=== PATIENT | female | born 1955 | race Caucasian/White ===

== ENCOUNTER 2019-03-16 14:08 | Observation (INO) | payer OTHER, SELFPAY ==
[2019-03-16] VITALS (13 sets, daily range): BP systolic 117–164; BP diastolic 44–76; PULSE 87–105; RESP 15–22; TEMP 36.4–38.8; O2SAT 93–100; BMI 26.6; BMI 26.2
--- NOTE | 2019-03-16 14:24 | PC.NURSE ---
reports, left flank onset friday, now with fever and nausea, denies vomiting. seen at [place], sent here for evaluations. had pain medications [employer]. treated with prednisone for face/chest rash.
--- NOTE | 2019-03-16 14:39 | ED_ITS ---
HPI - Fever <Michaela Sahni PA-C - Last Filed: 03/16/19 18:58> General Chief Complaint: Abdominal Pain Stated Complaint: uncontrollable shivers,kidney pain,fever Time Seen by Provider: 03/16/19 14:15 Source: patient Mode of arrival: ambulatory Limitations: no limitations History of Present Illness HPI Narrative: This 64-year-old female is a her PCP office secondary to concern for pyelonephritis, with fever and rigors. She states that she began to have left flank pain on Friday, which gradually worsened throughout the day, then she had uncontrollable shaking on Friday night. She states that actually felt better yesterday with some moderate flank pain, but pain worsened again last night and she began to have shakes again. She went to her PCP office today and had temperature of 102.5?, urinalysis was done and she had 2+ blood, 1+ protein, 1+ leukocytes, nitrites (brought results with her). She did not have any new urinary symptoms prior. She denies abdominal pain and states this is localized in the flank. She has had some nausea. She has not had vomiting. She denies chest pain, dyspnea, new pain or swelling in the extremities. She has been on prednisone taper for rash of unknown origin, last took 5 mg yesterday. Patient describes getting scalded action, not sure if she has taken cephalosporins. She states she has tolerated Cipro in the past without problems for UTI. No chronic health issues. Discussed with her PCP who mentioned recent treatment for rash but no chronic health conditions. No recent lab work Related Data Home Medications Medication Instructions Recorded Confirmed prednisone 10 mg PO DAILY 03/16/19 03/16/19 tacrolimus 1 applic TOPICAL DIRECTED 03/16/19 03/16/19 Allergies Allergy/AdvReac Type Severity Reaction Status Date / Time Penicillins Allergy Verified 03/16/19 14:17 Review of Systems <Michaela Sahni PA-C - Last Filed: 03/16/19 18:58> Review of Systems ROS Unobtainable: All systems reviewed & are unremarkable except as noted in HPI and below PFSH <Michaela Sahni PA-C - Last Filed: 03/16/19 18:58> Medical History (Updated 03/16/19 @ 17:32 by Lorena Nam MD) Dermatitis (Acute) No chronic problems (Chronic) Surgical History History of laparoscopy (Resolved) Hx of exploratory laparotomy (Resolved) Social History Smoking Status: Never smoker Family History (Updated 03/16/19 @ 17:32 by Lorena Nam MD) Father Bladder cancer Social History household members: spouse Smoking Status: Never smoker alcohol intake: current Exam <Michaela Sahni PA-C - Last Filed: 03/16/19 18:58> Narrative Exam Narrative: GENERAL APPEARANCE: Patient in NAD but rigors noted HEENT: PERRL, EOMI, conjunctiva pink NECK: Supple, no masses LUNGS: Clear to auscultation bilaterally, no cough on exam. HEART: Rate and rhythm regular without murmur, normal S1 and S2, no S3 or S4. ABDOMEN: Soft, NT, ND, +BS x 4 quadrants, exquisite left CVAT, minimal right CVAT DERMATOLOGIC: No exanthem EXTREMITIES: No cyanosis or edema, no calf tenderness Initial Vital Signs Initial Vital Signs: Vital Signs Temperature 98.9 F 03/16/19 14:19 Pulse Rate 105 H 03/16/19 14:19 Respiratory Rate 22 03/16/19 14:19 Blood Pressure 164/76 H 03/16/19 14:19 Pulse Oximetry 99 03/16/19 14:19 <Romel Easley DO - Last Filed: 03/16/19 19:58> Initial Vital Signs Initial Vital Signs: Vital Signs Temperature 98.9 F 03/16/19 14:19 Pulse Rate 105 H 03/16/19 14:19 Respiratory Rate 22 03/16/19 14:19 Blood Pressure 164/76 H 03/16/19 14:19 Pulse Oximetry 99 03/16/19 14:19 Course <Michaela Sahni PA-C - Last Filed: 03/16/19 18:58> Additional Information: The patient did spike another fever, feeling better after pain medications, has not vomited. She is ill appearing though rigors have started to improve. Spoke with Dr. Nam on-call hospitalist who is agreeable with admission Orders Ordered: ED Orders 03/16/19 14:35 Complete Blood Count AUTO DIFF Stat Comprehensive Metabolic Panel Stat Lactate (Lactic Acid) Stat Partial Thromboplastin Time Stat Prothrombin Time INR Stat Urinalysis and Microscopic Stat Urine Culture Stat 03/16/19 15:14 Blood Culture Stat 03/16/19 16:45 Education, smoking cessation ONGOING 03/17/19 05:00 Basic Metabolic Panel Routine Complete Blood Count AUTO DIFF Routine Acetaminophen (Tylenol) 650 mg PO Q6HR PRN PRN Reason: As Needed for Fever/Mild Pain Hydrocodone Bitart/Acetaminophen ([place] 5/325) 1 tab PO Q4HR PRN PRN Reason: Pain, Moderate (4-6) Last Admin: 03/16/19 17:45 Dose: 1 tab Bisacodyl (Dulcolax) 10 mg PO DAILY PRN PRN Reason: Constipation Docusate Sodium (Colace) 100 mg PO BID SIVAKUMAR Enoxaparin Sodium (Lovenox) 40 mg SUBCUT DAILY SIVAKUMAR Levofloxacin (Levaquin) 500 mg in 100 mls @ 100 mls/hr IV Q24H SIVAKUMAR Potassium Chloride/Sodium Chloride (Ns With Kcl 20 Meq) 1,000 mls @ 125 mls/hr IV CONT SIVAKUMAR Morphine Sulfate (Morphine) 2 mg IV Q4HR PRN PRN Reason: Pain, Moderate (4-6) Ondansetron HCl (Zofran) 4 mg IV Q8HR PRN PRN Reason: Nausea And Vomiting Discontinued Medications Acetaminophen (Tylenol) 975 mg PO NOW ONE Stop: 03/16/19 15:22 Last Admin: 03/16/19 15:22 Dose: 975 mg Sodium Chloride (Normal Saline 0.9%) 2,313.33 mls @ 771.11 mls/hr 30 ml/kg infuse over 3 hr (2313.33 ml) IV NOW ONE Stop: 03/16/19 17:31 Last Infusion: 03/16/19 16:56 Dose: 771 mls/hr Infusion: 03/16/19 16:44 Dose: 771 mls/hr Infusion: 03/16/19 16:36 Dose: 771 mls/hr Infusion: 03/16/19 15:30 Dose: 400 mls/hr Admin: 03/16/19 14:53 Dose: 771.11 mls/hr Levofloxacin (Levaquin) 500 mg in 100 mls @ 100 mls/hr IV NOW ONE Stop: 03/16/19 16:16 Last Infusion: 03/16/19 15:30 Dose: 0 mls/hr Admin: 03/16/19 15:30 Dose: 100 mls/hr Ketorolac Tromethamine (Toradol) 15 mg IV NOW ONE Stop: 03/16/19 15:18 Last Admin: 03/16/19 15:22 Dose: 15 mg Morphine Sulfate (Morphine) 4 mg IV NOW ONE Stop: 03/16/19 15:11 Last Admin: 03/16/19 15:16 Dose: 4 mg Ondansetron HCl (Zofran) 4 mg IV NOW ONE Stop: 03/16/19 14:40 Last Admin: 03/16/19 14:53 Dose: 4 mg Prednisone (Deltasone) 10 mg PO DAILY SIVAKUMAR Vital Signs - 8 hr 03/16/19 14:19 03/16/19 14:55 03/16/19 15:00 Temperature 98.9 F Pulse Rate 105 H 96 H 94 H Respiratory Rate 22 22 20 Blood Pressure 164/76 H Blood Pressure [Left Arm] 117/56 L 134/45 L Pulse Oximetry 99 100 99 03/16/19 15:18 03/16/19 15:22 03/16/19 15:30 Temperature 101.8 F H 101.8 F H Pulse Rate 99 H Respiratory Rate 20 Blood Pressure Blood Pressure [Left Arm] 143/50 H Pulse Oximetry 99 03/16/19 15:52 03/16/19 16:00 03/16/19 16:20 Temperature 99 F 99.3 F Pulse Rate 98 H Respiratory Rate 15 Blood Pressure Blood Pressure [Left Arm] 120/46 L Pulse Oximetry 93 03/16/19 16:32 03/16/19 16:45 Temperature 100.8 F H Pulse Rate 94 H 95 H Respiratory Rate 17 17 Blood Pressure 134/67 Blood Pressure [Left Arm] 120/44 L Pulse Oximetry 96 96 <Romel Easley DO - Last Filed: 03/16/19 19:58> Orders Ordered: ED Orders 03/16/19 14:35 Complete Blood Count AUTO DIFF Stat Comprehensive Metabolic Panel Stat Lactate (Lactic Acid) Stat Partial Thromboplastin Time Stat Prothrombin Time INR Stat Urinalysis and Microscopic Stat Urine Culture Stat 03/16/19 15:14 Blood Culture Stat 03/16/19 16:45 Education, smoking cessation ONGOING 03/17/19 05:00 Basic Metabolic Panel Routine Complete Blood Count AUTO DIFF Routine Acetaminophen (Tylenol) 650 mg PO Q6HR PRN PRN Reason: As Needed for Fever/Mild Pain Hydrocodone Bitart/Acetaminophen ([place] 5/325) 1 tab PO Q4HR PRN PRN Reason: Pain, Moderate (4-6) Last Admin: 03/16/19 17:45 Dose: 1 tab Bisacodyl (Dulcolax) 10 mg PO DAILY PRN PRN Reason: Constipation Docusate Sodium (Colace) 100 mg PO BID SIVAKUMAR Enoxaparin Sodium (Lovenox) 40 mg SUBCUT DAILY SIVAKUMAR Levofloxacin (Levaquin) 500 mg in 100 mls @ 100 mls/hr IV Q24H SIVAKUMAR Potassium Chloride/Sodium Chloride (Ns With Kcl 20 Meq) 1,000 mls @ 125 mls/hr IV CONT SIVAKUMAR Morphine Sulfate (Morphine) 2 mg IV Q4HR PRN PRN Reason: Pain, Moderate (4-6) Ondansetron HCl (Zofran) 4 mg IV Q8HR PRN PRN Reason: Nausea And Vomiting Discontinued Medications Acetaminophen (Tylenol) 975 mg PO NOW ONE Stop: 03/16/19 15:22 Last Admin: 03/16/19 15:22 Dose: 975 mg Sodium Chloride (Normal Saline 0.9%) 2,313.33 mls @ 771.11 mls/hr 30 ml/kg infuse over 3 hr (2313.33 ml) IV NOW ONE Stop: 03/16/19 17:31 Last Infusion: 03/16/19 16:56 Dose: 771 mls/hr Infusion: 03/16/19 16:44 Dose: 771 mls/hr Infusion: 03/16/19 16:36 Dose: 771 mls/hr Infusion: 03/16/19 15:30 Dose: 400 mls/hr Admin: 03/16/19 14:53 Dose: 771.11 mls/hr Levofloxacin (Levaquin) 500 mg in 100 mls @ 100 mls/hr IV NOW ONE Stop: 03/16/19 16:16 Last Infusion: 03/16/19 15:30 Dose: 0 mls/hr Admin: 03/16/19 15:30 Dose: 100 mls/hr Ketorolac Tromethamine (Toradol) 15 mg IV NOW ONE Stop: 03/16/19 15:18 Last Admin: 03/16/19 15:22 Dose: 15 mg Morphine Sulfate (Morphine) 4 mg IV NOW ONE Stop: 03/16/19 15:11 Last Admin: 03/16/19 15:16 Dose: 4 mg Ondansetron HCl (Zofran) 4 mg IV NOW ONE Stop: 03/16/19 14:40 Last Admin: 03/16/19 14:53 Dose: 4 mg Prednisone (Deltasone) 10 mg PO DAILY SIVAKUMAR Vital Signs - 8 hr 03/16/19 14:19 03/16/19 14:55 03/16/19 15:00 Temperature 98.9 F Pulse Rate 105 H 96 H 94 H Respiratory Rate 22 22 20 Blood Pressure 164/76 H Blood Pressure [Left Arm] 117/56 L 134/45 L Pulse Oximetry 99 100 99 03/16/19 15:18 03/16/19 15:22 03/16/19 15:30 Temperature 101.8 F H 101.8 F H Pulse Rate 99 H Respiratory Rate 20 Blood Pressure Blood Pressure [Left Arm] 143/50 H Pulse Oximetry 99 03/16/19 15:52 03/16/19 16:00 03/16/19 16:20 Temperature 99 F 99.3 F Pulse Rate 98 H Respiratory Rate 15 Blood Pressure Blood Pressure [Left Arm] 120/46 L Pulse Oximetry 93 03/16/19 16:32 03/16/19 16:45 Temperature 100.8 F H Pulse Rate 94 H 95 H Respiratory Rate 17 17 Blood Pressure 134/67 Blood Pressure [Left Arm] 120/44 L Pulse Oximetry 96 96 MDM - Fever <Michaela Sahni PA-C - Last Filed: 03/16/19 18:58> Lab Data Attestation: I reviewed the patient's lab results. Result diagrams: 03/16/19 14:35 03/16/19 14:35 Lab Results 03/16/19 03/16/19 03/16/19 Range/Units 14:35 14:35 14:35 WBC 15.3 H (4.5-11.0) X10^3/uL RBC 4.90 (4.0-5.2) X10^6/uL Hgb 14.6 (12.0-16.0) g/dL Hct 43.5 (36-46) % MCV 88.8 (80-100) fL MCH 29.7 (26-34) PG MCHC 33.4 (30-36) % RDW 14.1 (11.6-14.8) % Plt Count 248 (150-400) X10^3/uL Neut % (Auto) 79.1 H (50-75) % Lymph % (Auto) 9.4 L (25-40) % Phelps % (Auto) 9.8 (3-14) % Eos % (Auto) 1.3 L (2-4) % Baso % (Auto) 0.4 (0-2) % Neut # (Auto) 12683 H (1434-6463) /uL Lymph # (Auto) 1400 (2112-2902) /uL Phelps # (Auto) 1500 H (0-900) /uL Eos # (Auto) 200 (0-450) /uL Baso # (Auto) 100 (0-100) /uL PT 12.3 (10.1-12.7) SECONDS INR 1.1 (0.9-1.3) APTT 34 (26.4-36.2) SECONDS Sodium (137-145) mmol/L Potassium (3.4-5.1) mmol/L Chloride (98-107) mmol/L Carbon Dioxide (22-32) mmol/L BUN (7-17) mg/dL Creatinine (0.52-1.04) mg/dL Estimated GFR (>60) mL/min BUN/Creatinine Ratio (6-22) Glucose (80-110) mg/dL Lactate 1.8 (0.7-2.1) mmol/L Calcium (8.4-10.2) mg/dL Total Bilirubin (0.2-1.3) mg/dL AST (14-36) IU/L ALT (9-52) IU/L Alkaline Phosphatase (38-126) U/L Total Protein (6.3-8.2) g/dL Albumin (3.5-5.0) g/dL Globulin (1.7-4.1) g/dL Albumin/Globulin Ratio (1.0-2.8) Urine Color Urine Appearance Urine pH (4.5-8.0) Ur Specific [place] (1.000-1.035) Urine Protein (Negative) Urine Glucose (UA) (Negative) g/dL Urine Ketones (NEGATIVE) Urine Occult Blood (Negative) Urine Nitrate (Negative) Urine Bilirubin (NEGATIVE) Urine Urobilinogen (0.2) E.U./dL Ur Leukocyte Esterase (NEGATIVE) Urine RBC (0-5/HPF) Urine WBC (0-5/HPF) Ur Squamous Epith Cells (0-5/HPF) Amorphous Sediment Urine Bacteria (None) Granular Casts (None) Ur Culture Indicated? 03/16/19 03/16/19 Range/Units 14:35 14:35 WBC (4.5-11.0) X10^3/uL RBC (4.0-5.2) X10^6/uL Hgb (12.0-16.0) g/dL Hct (36-46) % MCV (80-100) fL MCH (26-34) PG MCHC (30-36) % RDW (11.6-14.8) % Plt Count (150-400) X10^3/uL Neut % (Auto) (50-75) % Lymph % (Auto) (25-40) % Phelps % (Auto) (3-14) % Eos % (Auto) (2-4) % Baso % (Auto) (0-2) % Neut # (Auto) (8324-3859) /uL Lymph # (Auto) (8650-8611) /uL Phelps # (Auto) (0-900) /uL Eos # (Auto) (0-450) /uL Baso # (Auto) (0-100) /uL PT (10.1-12.7) SECONDS INR (0.9-1.3) APTT (26.4-36.2) SECONDS Sodium 140 (137-145) mmol/L Potassium 4.2 (3.4-5.1) mmol/L Chloride 99 (98-107) mmol/L Carbon Dioxide 30 (22-32) mmol/L BUN 17 (7-17) mg/dL Creatinine 1.40 H (0.52-1.04) mg/dL Estimated GFR 37.7 L (>60) mL/min BUN/Creatinine Ratio 12.1 (6-22) Glucose 111 H (80-110) mg/dL Lactate (0.7-2.1) mmol/L Calcium 9.7 (8.4-10.2) mg/dL Total Bilirubin 0.8 (0.2-1.3) mg/dL AST 30 (14-36) IU/L ALT 23 (9-52) IU/L Alkaline Phosphatase 91 (38-126) U/L Total Protein 8.2 (6.3-8.2) g/dL Albumin 4.6 (3.5-5.0) g/dL Globulin 3.6 (1.7-4.1) g/dL Albumin/Globulin Ratio 1.3 (1.0-2.8) Urine Color Yellow Urine Appearance Cloudy Urine pH 5.0 (4.5-8.0) Ur Specific [place] 1.025 (1.000-1.035) Urine Protein 2+ H (Negative) Urine Glucose (UA) Negative (Negative) g/dL Urine Ketones Negative (NEGATIVE) Urine Occult Blood 3+ H (Negative) Urine Nitrate Positive H (Negative) Urine Bilirubin Negative (NEGATIVE) Urine Urobilinogen 0.2 (0.2) E.U./dL Ur Leukocyte Esterase 1+ H (NEGATIVE) Urine RBC 10-30/hpf H (0-5/HPF) Urine WBC >100/hpf H (0-5/HPF) Ur Squamous Epith Cells 0-1 /hpf (0-5/HPF) Amorphous Sediment 1+ Urine Bacteria Many (>30) H (None) Granular Casts 0-1/lpf (None) Ur Culture Indicated? Specimen cultured <Romel Easley, DO - Last Filed: 03/16/19 19:58> Lab Data Lab Results 03/16/19 03/16/19 03/16/19 Range/Units 14:35 14:35 14:35 WBC 15.3 H (4.5-11.0) X10^3/uL RBC 4.90 (4.0-5.2) X10^6/uL Hgb 14.6 (12.0-16.0) g/dL Hct 43.5 (36-46) % MCV 88.8 (80-100) fL MCH 29.7 (26-34) PG MCHC 33.4 (30-36) % RDW 14.1 (11.6-14.8) % Plt Count 248 (150-400) X10^3/uL Neut % (Auto) 79.1 H (50-75) % Lymph % (Auto) 9.4 L (25-40) % Phelps % (Auto) 9.8 (3-14) % Eos % (Auto) 1.3 L (2-4) % Baso % (Auto) 0.4 (0-2) % Neut # (Auto) 09609 H (0939-0374) /uL Lymph # (Auto) 1400 (0235-5413) /uL Phelps # (Auto) 1500 H (0-900) /uL Eos # (Auto) 200 (0-450) /uL Baso # (Auto) 100 (0-100) /uL PT 12.3 (10.1-12.7) SECONDS INR 1.1 (0.9-1.3) APTT 34 (26.4-36.2) SECONDS Sodium (137-145) mmol/L Potassium (3.4-5.1) mmol/L Chloride (98-107) mmol/L Carbon Dioxide (22-32) mmol/L BUN (7-17) mg/dL Creatinine (0.52-1.04) mg/dL Estimated GFR (>60) mL/min BUN/Creatinine Ratio (6-22) Glucose (80-110) mg/dL Lactate 1.8 (0.7-2.1) mmol/L Calcium (8.4-10.2) mg/dL Total Bilirubin (0.2-1.3) mg/dL AST (14-36) IU/L ALT (9-52) IU/L Alkaline Phosphatase (38-126) U/L Total Protein (6.3-8.2) g/dL Albumin (3.5-5.0) g/dL Globulin (1.7-4.1) g/dL Albumin/Globulin Ratio (1.0-2.8) Urine Color Urine Appearance Urine pH (4.5-8.0) Ur Specific [place] (1.000-1.035) Urine Protein (Negative) Urine Glucose (UA) (Negative) g/dL Urine Ketones (NEGATIVE) Urine Occult Blood (Negative) Urine Nitrate (Negative) Urine Bilirubin (NEGATIVE) Urine Urobilinogen (0.2) E.U./dL Ur Leukocyte Esterase (NEGATIVE) Urine RBC (0-5/HPF) Urine WBC (0-5/HPF) Ur Squamous Epith Cells (0-5/HPF) Amorphous Sediment Urine Bacteria (None) Granular Casts (None) Ur Culture Indicated? 03/16/19 03/16/19 Range/Units 14:35 14:35 WBC (4.5-11.0) X10^3/uL RBC (4.0-5.2) X10^6/uL Hgb (12.0-16.0) g/dL Hct (36-46) % MCV (80-100) fL MCH (26-34) PG MCHC (30-36) % RDW (11.6-14.8) % Plt Count (150-400) X10^3/uL Neut % (Auto) (50-75) % Lymph % (Auto) (25-40) % Phelps % (Auto) (3-14) % Eos % (Auto) (2-4) % Baso % (Auto) (0-2) % Neut # (Auto) (1228-6307) /uL Lymph # (Auto) (4727-2019) /uL Phelps # (Auto) (0-900) /uL Eos # (Auto) (0-450) /uL Baso # (Auto) (0-100) /uL PT (10.1-12.7) SECONDS INR (0.9-1.3) APTT (26.4-36.2) SECONDS Sodium 140 (137-145) mmol/L Potassium 4.2 (3.4-5.1) mmol/L Chloride 99 (98-107) mmol/L Carbon Dioxide 30 (22-32) mmol/L BUN 17 (7-17) mg/dL Creatinine 1.40 H (0.52-1.04) mg/dL Estimated GFR 37.7 L (>60) mL/min BUN/Creatinine Ratio 12.1 (6-22) Glucose 111 H (80-110) mg/dL Lactate (0.7-2.1) mmol/L Calcium 9.7 (8.4-10.2) mg/dL Total Bilirubin 0.8 (0.2-1.3) mg/dL AST 30 (14-36) IU/L ALT 23 (9-52) IU/L Alkaline Phosphatase 91 (38-126) U/L Total Protein 8.2 (6.3-8.2) g/dL Albumin 4.6 (3.5-5.0) g/dL Globulin 3.6 (1.7-4.1) g/dL Albumin/Globulin Ratio 1.3 (1.0-2.8) Urine Color Yellow Urine Appearance Cloudy Urine pH 5.0 (4.5-8.0) Ur Specific [place] 1.025 (1.000-1.035) Urine Protein 2+ H (Negative) Urine Glucose (UA) Negative (Negative) g/dL Urine Ketones Negative (NEGATIVE) Urine Occult Blood 3+ H (Negative) Urine Nitrate Positive H (Negative) Urine Bilirubin Negative (NEGATIVE) Urine Urobilinogen 0.2 (0.2) E.U./dL Ur Leukocyte Esterase 1+ H (NEGATIVE) Urine RBC 10-30/hpf H (0-5/HPF) Urine WBC >100/hpf H (0-5/HPF) Ur Squamous Epith Cells 0-1 /hpf (0-5/HPF) Amorphous Sediment 1+ Urine Bacteria Many (>30) H (None) Granular Casts 0-1/lpf (None) Ur Culture Indicated? Specimen cultured Discharge Plan Departure Patient Disposition: Admitted As Inpatient Clinical Impression: Pyelonephritis Discharge Date/Time: 03/16/19 16:36 Interventions: ED Discharge Assessment Last Done: 03/16/19 16:36 Admit Date/Time: 03/16/19 16:13 Admit Provider: Lorena Nam <Romel Easley DO - Last Filed: 03/16/19 19:58> Cosign ED Attending Nathalieature Attestation: I was immediately available in the department for consultation. Documentation has been reviewed. I agree with assessment and plan.
[2019-03-16] MEDS: ONDANSETRON 4 MG/2 ML INJ IV (14:53)
[2019-03-16] MEDS: SODIUM CHLORIDE 0.9% 2,313.33 ML 771.11 ML IV (14:53)
[2019-03-16 15:00] LABS: Add Manual Diff / Slide Review NO; Basophils Absolute Auto 100 /uL (0-100); Basophils Percent Auto 0.4 % (0-2); Eosinophils Absolute Auto 200 /uL (0-450); Eosinophils Percent Auto 1.3 % (2-4); Hematocrit 43.5 % (36-46); Hemoglobin 14.6 g/dL (12.0-16.0); Lymphocytes Absolute Auto 1400 /uL (1100-4500); Lymphocytes Percent Auto 9.4 % (25-40); Mean Corpuscular HGB Conc 33.4 % (30-36); Mean Corpuscular Hemoglobin 29.7 PG (26-34); Mean Corpuscular Volume 88.8 fL (80-100); Monocytes Absolute Auto 1500 /uL (0-900); Monocytes Percent Auto 9.8 % (3-14); Neutrophils Absolute Auto 12100 /uL (1500-7000); Neutrophils Percent Auto 79.1 % (50-75); Platelet Count 248 X10^3/uL (150-400); Red Cell Distribution Width 14.1 % (11.6-14.8); White Blood Cell Count 15.3 X10^3/uL (4.5-11.0)
[2019-03-16 15:04] LABS: Appearance Urine UA CLOUDY; Bilirubin Urine UA NEGATIVE (NEGATIVE); Color Urine UA YELLOW; Glucose Urine UA NEGATIVE (Negative); Ketones Urine UA NEGATIVE (NEGATIVE); Leukocyte Esterase Urine UA 1+ (NEGATIVE); Nitrite Urine UA POSITIVE (Negative); Occult Blood Urine UA 3+ (Negative); Protein Urine UA 2+ (Negative); Specific Gravity Urine UA 1.025 (1.000-1.035); Urobilinogen Urine UA 0.2 E.U./dL (0.2)
[2019-03-16 15:06] LABS: INR 1.1 (0.9-1.3); Prothrombin Time 12.3 SECONDS (10.1-12.7)
[2019-03-16 15:09] LABS: PTT Partial Thromboplastin Tim 34 SECONDS (26.4-36.2)
[2019-03-16 15:11] LABS: Lactate (Lactic Acid) 1.8 mmol/L (0.7-2.1)
[2019-03-16 15:12] LABS: Alanine Aminotransferase 23 IU/L (9-52); Albumin 4.6 g/dL (3.5-5.0); Albumin Globulin Ratio 1.3 (1.0-2.8); Alkaline Phosphatase 91 U/L (38-126); Aspartate Aminotransferase 30 IU/L (14-36); BUN Creatinine Ratio 12.1 (6-22); Bilirubin Total 0.8 mg/dL (0.2-1.3); Blood Urea Nitrogen 17 mg/dL (7-17); Calcium 9.7 mg/dL (8.4-10.2); Carbon Dioxide 30 mmol/L (22-32); Chloride 99 mmol/L (98-107); Estimated Glomerular Filt Rate 37.7 mL/min (>60); Globulin 3.6 g/dL (1.7-4.1); Glucose 111 mg/dL (80-110); HEMOLYSIS < 15 (0-50); Potassium 4.2 mmol/L (3.4-5.1); Sodium 140 mmol/L (137-145); Total Protein 8.2 g/dL (6.3-8.2)
[2019-03-16 15:15] LABS: RBC Urine 10-30/HPF (0-5/HPF); Squamous Epithelial Cell Urine 0-1 /HPF (0-5/HPF); WBC Urine >100/HPF (0-5/HPF)
[2019-03-16 15:16] LABS: Amorphous Sediment Urine 1+; Bacteria Urine Many (>30); Culture Indicated Urine Specimen Cultured; Granular Casts Urine 0-1/LPF
[2019-03-16] MEDS: MORPHINE 4 MG/ML INJ IV (15:16)
[2019-03-16] MEDS: KETOROLAC 60 MG/2 ML VIAL 15 MG IV (15:22)
[2019-03-16] MEDS: ACETAMINOPHEN 325 MG TABLET 975 MG PO (15:22)
[2019-03-16] MEDS: levoFLOXacin 500 MG/100 ML PIGGYBACK 100 MG IV (15:30)
--- NOTE | 2019-03-16 17:37 | P.HP_ITS ---
History of Present Illness Date Patient Seen: 03/16/19 Chief complaint: uncontroller shivers,kidney pain,fever Narrative: The patient is a 64-year-old female relatively healthy except for a skin condition who was in her usual state of health until Friday evening when she developed pain in her left kidney. Patient noted that the pain improved however she then developed shaking rigors. Because of the rigors she went in to see her PCP in the clinic on [facility] today. A UA was obtained and was positive for both bacteria and blood. Patient was found to be febrile to 102.5. She was transferred to [facility] for further evaluation. In the emergency department she was found to be febrile to 100.8. Her UA here was positive again. She does continue to have left CVA tenderness. In addition the patient had blood cultures obtained in the emergency room, she was started on IV antibiotics including levofloxacin given a penicillin allergy. She also was given IV fluids at 30 cc/kilogram. Her serum lactate was 1.8. The patient was noted to have a mildly elevated creatinine of 1.4. She is admitted to the hospital at this time for acute pyelonephritis Patient History Medical History (Updated 03/16/19 @ 17:32 by Lorena Nam MD) Dermatitis (Acute) No chronic problems (Chronic) Surgical History History of laparoscopy (Resolved) Hx of exploratory laparotomy (Resolved) Social History Smoking Status: Never smoker Family & Social History Family History (Updated 03/16/19 @ 17:32 by oLrena Nam MD) Father Bladder cancer Safety & Behavioral: Feels Safe in Current Yes Environment Tobacco & Substance use: Smoking Status Never smoker Substance Use Type does not use Meds Home Medications Medication Instructions Recorded Confirmed Type prednisone 10 mg PO DAILY 03/16/19 03/16/19 History tacrolimus 1 applic TOPICAL DIRECTED 03/16/19 03/16/19 History Allergies Allergy/AdvReac Type Severity Reaction Status Date / Time Penicillins Allergy Verified 03/16/19 14:17 Review of Systems Review of Systems Patient reports some peeling of her skin along her eyes and chest. She has had some nausea but no vomiting. She denies any burning with urination but does report some hematuria. She continues to complain of left flank pain. She has had no shortness of breath or chest pain. No abdominal pain. No headache. She is febrile and reports rigors as above. All other review of systems is negative Exam Vital Signs (past 8 hours): - 03/16/19 14:19 03/16/19 14:55 03/16/19 15:00 Temperature 98.9 F Pulse Rate 105 H 96 H 94 H Respiratory Rate 22 22 20 Blood Pressure 164/76 H Blood Pressure [Left Arm] 117/56 L 134/45 L Pulse Oximetry 99 100 99 03/16/19 15:18 03/16/19 15:22 03/16/19 15:30 Temperature 101.8 F H 101.8 F H Pulse Rate 99 H Respiratory Rate 20 Blood Pressure Blood Pressure [Left Arm] 143/50 H Pulse Oximetry 99 03/16/19 15:52 03/16/19 16:00 03/16/19 16:20 Temperature 99 F 99.3 F Pulse Rate 98 H Respiratory Rate 15 Blood Pressure Blood Pressure [Left Arm] 120/46 L Pulse Oximetry 93 03/16/19 16:32 03/16/19 16:45 Temperature 100.8 F H Pulse Rate 94 H 95 H Respiratory Rate 17 17 Blood Pressure 134/67 Blood Pressure [Left Arm] 120/44 L Pulse Oximetry 96 96 Oxygen Delivery Method Room Air Narrative Exam Narrative: Flushed ill-appearing female HEENT: Normocephalic atraumatic, sclerae anicteric, extraocular muscles are intact, oropharynx reveals moist mucous membranes Skin: Dry scaly peeling skin around the eyes bilaterally, erythema of her face, some puffiness noted as well Lungs: Clear to auscultation Cardiac exam: Regular rate and rhythm normal S1-S2 Abdomen: Soft nontender nondistended, no hepatosplenomegaly, no board-like rigidity, no palpable mass, there is left CVA tenderness noted Extremity: No edema Neuro exam: Nonfocal Psychiatric exam: Patient is awake alert and oriented, answers questions appropriately, has no hallucinations, no active delusion Objective Labs Result Diagrams: 03/16/19 14:35 03/16/19 14:35 Labs: Laboratory Results - last 24 hr 03/16/19 03/16/19 03/16/19 14:35 14:35 14:35 WBC 15.3 H RBC 4.90 Hgb 14.6 Hct 43.5 MCV 88.8 MCH 29.7 MCHC 33.4 RDW 14.1 Plt Count 248 Neut % (Auto) 79.1 H Lymph % (Auto) 9.4 L [place] % (Auto) 9.8 Eos % (Auto) 1.3 L Baso % (Auto) 0.4 Neut # (Auto) 80827 H Lymph # (Auto) 1400 [place] # (Auto) 1500 H Eos # (Auto) 200 Baso # (Auto) 100 PT 12.3 INR 1.1 APTT 34 Sodium Potassium Chloride Carbon Dioxide BUN Creatinine Estimated GFR BUN/Creatinine Ratio Glucose Lactate 1.8 Calcium Total Bilirubin AST ALT Alkaline Phosphatase Total Protein Albumin Globulin Albumin/Globulin Ratio Urine Color Urine Appearance Urine pH Ur Specific [place] Urine Protein Urine Glucose (UA) Urine Ketones Urine Occult Blood Urine Nitrate Urine Bilirubin Urine Urobilinogen Ur Leukocyte Esterase Urine RBC Urine WBC Ur Squamous Epith Cells Amorphous Sediment Urine Bacteria Granular Casts Ur Culture Indicated? 03/16/19 03/16/19 14:35 14:35 WBC RBC Hgb Hct MCV MCH MCHC RDW Plt Count Neut % (Auto) Lymph % (Auto) [place] % (Auto) Eos % (Auto) Baso % (Auto) Neut # (Auto) Lymph # (Auto) [place] # (Auto) Eos # (Auto) Baso # (Auto) PT INR APTT Sodium 140 Potassium 4.2 Chloride 99 Carbon Dioxide 30 BUN 17 Creatinine 1.40 H Estimated GFR 37.7 L BUN/Creatinine Ratio 12.1 Glucose 111 H Lactate Calcium 9.7 Total Bilirubin 0.8 AST 30 ALT 23 Alkaline Phosphatase 91 Total Protein 8.2 Albumin 4.6 Globulin 3.6 Albumin/Globulin Ratio 1.3 Urine Color Yellow Urine Appearance Cloudy Urine pH 5.0 Ur Specific [place] 1.025 Urine Protein 2+ H Urine Glucose (UA) Negative Urine Ketones Negative Urine Occult Blood 3+ H Urine Nitrate Positive H Urine Bilirubin Negative Urine Urobilinogen 0.2 Ur Leukocyte Esterase 1+ H Urine RBC 10-30/hpf H Urine WBC >100/hpf H Ur Squamous Epith Cells 0-1 /hpf Amorphous Sediment 1+ Urine Bacteria Many (>30) H Granular Casts 0-1/lpf Ur Culture Indicated? Specimen cultured Assessment & Plan Assessment & Plan narrative: 64-year-old female with minimal previous history admitted to the hospital with acute pyelonephritis. Patient presents with sepsis. Patient has an elevated white count of 15.3, elevated creatinine of 1.4, fever to 100.8. Patient has been given 30 cc/kilogram of IV fluids in the emergency department. Blood cultures have been obtained, she is started on IV levofloxacin. At this time will await blood cultures and continue antibiotics. The patient will receive Vicodin and or Tylenol as needed for flank pain. Urine culture is pending. Will follow up and adjust antibiotics accordingly. 2. Nonspecific dermatitis, etiology unclear. Patient was on her last 2 days of prednisone. Given her ongoing infection will discontinue prednisone and monitor closely 3. DVT prophylaxis, will start enoxaparin 4. Code status, patient indicates she is full code and will note that in her record accordingly.
[2019-03-16] MEDS: HYDROCODONE/ACET 5/325 TABLET 1 TAB PO ×2 (17:45→22:33)
--- NOTE | 2019-03-16 18:38 | PC.NURSE ---
Addendum entered by Letitia Benitez R.N. 03/16/19 21:53: Pt had relatively uneventful evening. IVF changed to NS w/20meq KCL at 125. Pt up to BR several times w/o incidence. Call light w/in reach, pt calls appropriately for needs. Continue w/plana of care. Original Note: Pt arrived approximately 1655. Alert/oriented Denies any discomfort at this time. IV NS infusing at 771cc/hr via pump into RAC w/o incidence Tele NSR per ICU staff. Call light w/in reach, pt calls appropriately for needs.
[2019-03-16] MEDS: ENOXAPARIN 40 MG/0.4 ML SYRINGE SUBCUT (20:33)
[2019-03-16] MEDS: KCL 20 MEQ IN NS 1,000 ML 125 MEQ IV (20:34)
[2019-03-16] MEDS: ACETAMINOPHEN 325 MG TABLET 650 MG PO (23:22)
[2019-03-17] VITALS (18 sets, daily range): BP systolic 108–145; BP diastolic 49–64; PULSE 88–104; RESP 16–22; TEMP 36.6–39.4; O2SAT 92–96
[2019-03-17] MEDS: KCL 20 MEQ IN NS 1,000 ML 125 MEQ IV (03:40)
[2019-03-17] MEDS: ACETAMINOPHEN 325 MG TABLET 650 MG PO ×4 (05:38→23:37)
[2019-03-17] MEDS: HYDROCODONE/ACET 5/325 TABLET 1 TAB PO ×4 (05:40→23:37)
--- NOTE | 2019-03-17 05:58 | PC.NURSE ---
SHIPPING CLERK/ADMIN notified of temp. 102.9 and tylenol given
[2019-03-17 06:05] LABS: Add Manual Diff / Slide Review NO; Basophils Absolute Auto 0 /uL (0-100); Basophils Percent Auto 0.5 % (0-2); Eosinophils Absolute Auto 200 /uL (0-450); Eosinophils Percent Auto 2.1 % (2-4); Hematocrit 36.6 % (36-46); Lymphocytes Absolute Auto 900 /uL (1100-4500); Lymphocytes Percent Auto 10.2 % (25-40); Mean Corpuscular HGB Conc 32.7 % (30-36); Mean Corpuscular Hemoglobin 29.5 PG (26-34); Mean Corpuscular Volume 90.2 fL (80-100); Monocytes Absolute Auto 900 /uL (0-900); Monocytes Percent Auto 9.8 % (3-14); Neutrophils Absolute Auto 7100 /uL (1500-7000); Neutrophils Percent Auto 77.4 % (50-75); Platelet Count 174 X10^3/uL (150-400); Red Blood Cell Count 4.05 X10^6/uL (4.0-5.2); White Blood Cell Count 9.1 X10^3/uL (4.5-11.0)
[2019-03-17 06:08] LABS: Magnesium 2.1 mg/dL (1.6-2.3)
[2019-03-17 06:10] LABS: BUN Creatinine Ratio 11.8 (6-22); Blood Urea Nitrogen 13 mg/dL (7-17); Calcium 8.4 mg/dL (8.4-10.2); Carbon Dioxide 26 mmol/L (22-32); Chloride 108 mmol/L (98-107); Estimated Glomerular Filt Rate 49.8 mL/min (>60); Glucose 108 mg/dL (80-110); HEMOLYSIS < 15 (0-50); Potassium 5.1 mmol/L (3.4-5.1); Sodium 139 mmol/L (137-145)
[2019-03-17 06:22] LABS: Procalcitonin 0.35 ng/mL (<0.5)
[2019-03-17] MEDS: DOCUSATE 100 MG CAPSULE PO ×2 (09:06→21:38)
--- NOTE | 2019-03-17 13:14 | PC.NURSE ---
Day Shift- Pt sleeping and family member at bedside noted that her O2 sat read 84% per report by [employer]. O2 sat when awake was 95%. Pt wanted to sleep, O2 1L NC placed. On continuous O2 monitoring. It was also reported by Night RN that pt O2 desat to 86-87% and was placed on 1l NC. This AM pt reported 4/10 left flank pain. At 1050, pain 7/10. [place] prn given at 1055 with good effect, pain decreased to 4/10. Around 1400, pt c/o headache to posterior head at base of neck. PRN Tylenol given. T-max 100.6 F around 1200, pt had one episode of shaking, feeling cool, had multiple blankets on.
--- NOTE | 2019-03-17 14:15 | CM.DANOTE ---
Discharge Planning/Care Management DCP: assessment: case received, EMR reviewed and met with pt and her sister Agata/Dottie. Introduced self and role. Pt is a 64 year old who admitted to care of hospitalist team yster late afternoon. Payer: [employer] P Admission status: In Review at this time: per UR JIM Cabrera. Dr. Nam admitted pt for acute pylonephritis and she is on IV antibiotics, awaiting cultures. Dr. Jackson reported today in Team Rounds that pt would likely be her a couple more days. Pt with reported temp last night of 102.9. Pt with questions re the Priority Board process as she lives on [facility] [facility] and the [employer] system is currently no accepting reservations. She is concerned as Moses will be picking her up and she is unclear when she will d/c home. Dr. Jackson said maybe Friday. Explained the PB process that the [facility] can set up but only for the return of pt and driver/guide back to the [place]. Will be checking in tomorrow and hope to know more from Dr. Jackson about her likely d/c date. P: return home when stable for same. Advanced directive, confirm from CLINIC Start: 03/16/19 17:41 Freq: Q24H Status: Active Protocol: Document 03/16/19 18:28 KMD (Rec: 03/16/19 18:29 KMD [id number]) Advance Directive, confirm on record Time 18:28 Person contacted Pt Copy received No CM Discharge Assessment Start: 03/17/19 14:14 Freq: Status: Active Protocol: Document 03/17/19 14:14 ITV (Rec: 03/17/19 14:15 ITV [id number]) Discharge Planning Assessment Advance Directives? Yes History Provided By Patient Medical Record Prior Living Arrangements House Household Members spouse Comment lives with partner Moses Wu . He will be picking her up at d/c. Independent with ADL's Yes Is patient alert and oriented? Yes Whiteboard Updated in Patient Room with Yes name and ext. # of Thermodynamicist Review Status In Process Next Review Type Continued Stay Review
[2019-03-17] MEDS: levoFLOXacin 500 MG/100 ML PIGGYBACK 100 MG IV (16:13)
--- NOTE | 2019-03-17 16:22 | P.PN_ITS ---
Subjective Date Patient Seen: 03/17/19 Interval history: Natasha Gimenez is a 64-year-old female with minimal past medical history who presented for left flank pain and was admitted to the hospital with acute pyelonephritis. The patient is resting comfortably in bed. She continues to have fever with mild shaking chills/rigors. Discussed pyelonephritis and informed the patient that she may have fevers for up to 2 weeks due to this type of infection but that they should be less severe and less frequent over time. She preliminarily has Gram negative bacilli growing in her urine. She continues to endorse mild left flank pain and had nausea earlier this morning but believe it was due to hunger. She has no other complaints and denies headache, chest pain, shortness of breath, abdominal pain, nausea, vomiting, dysuria, diarrhea or constipation. She is voiding without difficulty. She has not yet had a bowel movement believe she will today. She is up ambulating without assistance. Exam Vital Signs (past 8 hours): - 03/17/19 08:44 03/17/19 10:52 03/17/19 12:00 Temperature 100.0 F H 100.6 F H Pulse Rate 91 H Respiratory Rate 16 Blood Pressure 122/64 Pulse Oximetry 95 95 03/17/19 13:14 03/17/19 13:55 03/17/19 15:55 Temperature 101.0 F H 98.6 F Pulse Rate 95 H Respiratory Rate 18 Blood Pressure 135/61 Pulse Oximetry 94 94 Fraction of Inspired Oxygen 21 Oxygen Delivery Method Nasal Cannula Oxygen Flow Rate 0 Narrative Exam Narrative: General: Older female lying in bed and in no acute distress, well-developed, well-nourished, appropriately interactive. HEENT: Normocephalic, atraumatic. External ears without defect. Pupils equal, round, and reactive to light. Anicteric sclerae, moist conjunctivae, and no lid lag. Oropharynx free of erythema and cobble stoning with moist mucosa. Flushed appearing face with malar rash. Neck: Supple with full range of motion. No lymphadenopathy or thyromegaly. Cardiovascular: Regular rate and rhythm without murmurs, rubs, or gallops appreciated. Pulmonary: Clear to auscultation bilaterally without crackles, wheezes, or rhonchi. Normal respiratory effort with no use of accessory muscles. Abdomen: Soft, bowel sounds present, mild suprapubic tenderness otherwise nontender, nondistended. Left flank tenderness, improved. No hepatosplenomegaly or masses appreciated. Extremities: No clubbing, cyanosis, or edema. Skin: Normal temperature, turgor, and texture; no rash, ulcers, or subcutaneous nodules appreciated. Neurological: Cranial nerves grossly intact. Psychiatric: Normal mood and affect. Alert and oriented to person, place, and ti me. Objective Labs Result Diagrams: 03/17/19 05:12 03/17/19 05:12 Labs: Laboratory Results - last 24 hr 03/16/19 03/17/19 03/17/19 14:35 05:12 05:12 WBC 9.1 RBC 4.05 Hgb 12.0 Hct 36.6 MCV 90.2 MCH 29.5 MCHC 32.7 RDW 14.0 Plt Count 174 Neut % (Auto) 77.4 H Lymph % (Auto) 10.2 L [place] % (Auto) 9.8 Eos % (Auto) 2.1 Baso % (Auto) 0.5 Neut # (Auto) 7100 H Lymph # (Auto) 900 L [place] # (Auto) 900 Eos # (Auto) 200 Baso # (Auto) 0 Sodium 139 Potassium 5.1 Chloride 108 H Carbon Dioxide 26 BUN 13 Creatinine 1.10 H Estimated GFR 49.8 L BUN/Creatinine Ratio 11.8 Glucose 108 Calcium 8.4 Magnesium Procalcitonin 0.40 03/17/19 03/17/19 05:12 05:12 WBC RBC Hgb Hct MCV MCH MCHC RDW Plt Count Neut % (Auto) Lymph % (Auto) [place] % (Auto) Eos % (Auto) Baso % (Auto) Neut # (Auto) Lymph # (Auto) [place] # (Auto) Eos # (Auto) Baso # (Auto) Sodium Potassium Chloride Carbon Dioxide BUN Creatinine Estimated GFR BUN/Creatinine Ratio Glucose Calcium Magnesium 2.1 Procalcitonin 0.35 Assessment & Plan Assessment & Plan narrative: Natasha Gimenez is a 64-year-old female with minimal past medical history who presented for left flank pain and was admitted to the hospital with acute pyelonephritis. 1. Acute sepsis, present on admission. Resolved. -Sepsis criteria met including:Febrile (T 100.8F), leukocytosis (15.3), elevated creatinine 1.4 with source pyelonephritis. Lactic acid normal at 1.8. -Early goal directed therapy met including: broad spectrum antibiotics and IV fluids. 2. Acute pyelonephritis, present on admission. Active. -Patient presented febrile with left flank pain and rigors. -Initial WBC elevated at 15.3 and procalcitonin 0.40. Continue to trend both daily. -Urine and blood cultures have been obtained and pending. -Continue levofloxacin 750 mg IV daily pending urine cultures and sensitivites. -Ordered Tylenol and Vicodin as needed for flank pain. 3. Nonspecific dermatitis, chronic, etiology unclear, present on admission. Stable. -Patient was on her last 2 days of prednisone, however, given her ongoing inf ection prednisone has been discontinued. Monitor rash closely. Disposition: Patient likely to discharge home in 1-2 days depending on urine culture and sensitivities. Quality VTE Deep Vein Thrombosis/Pulmonary Embolism Present on Admission: No
[2019-03-17] MEDS: MORPHINE 2 MG/ML INJ IV ×2 (17:46→21:47)
[2019-03-17] MEDS: SODIUM CHLORIDE 0.9% FLUSH 10 ML IV (21:38)
--- NOTE | 2019-03-17 22:42 | PC.NURSE ---
Pt A/O x4, S.O. in room visiting. 94%RA LS clear, denies SOB, desats during sleep to high 80's, 1L O2nc for sleep. Indep in room and hallways, BRP to void clear yellow urine. C/O right flank pain 7-8/10, medicated with morphine 2mg IVP, 1.75hrs later norco 1 tab PO, effective. 1800-temp 102.0, tylenol, 2000 temp 98.0. Pt becomes emotional during temp rising, reports feels strange, face flushes, and tearful. RAC ABO's then SL. Tele: NSR 92, NSR BBB 88. Slight tachycardia at beginning of shift-92, and slight HTN 135/61. Hoping to go home tomorrow. Call light in reach.
[2019-03-18] VITALS (7 sets, daily range): BP systolic 122–142; BP diastolic 61–64; PULSE 90–91; RESP 16; TEMP 36.8–38.4; O2SAT 93–97
[2019-03-18] MEDS: ACETAMINOPHEN 325 MG TABLET 650 MG PO (05:01)
[2019-03-18] MEDS: HYDROCODONE/ACET 5/325 TABLET 1 TAB PO (05:02)
[2019-03-18] MEDS: SODIUM CHLORIDE 0.9% FLUSH 10 ML IV (09:15)
--- NOTE | 2019-03-18 09:17 | P.DS_ITS ---
History of Present Illness Date Patient Seen: 03/16/19 Chief complaint: uncontroller shivers,kidney pain,fever Narrative: Written by Dr. Nam: The patient is a 64-year-old female relatively healthy except for a skin condition who was in her usual state of health until Friday evening when she developed pain in her left kidney. Patient noted that the pain improved however she then developed shaking rigors. Because of the rigors she went in to see her PCP in the clinic on [facility] today. A UA was obtained and was positive for both bacteria and blood. Patient was found to be febrile to 102.5. She was transferred to [facility] for further evaluation. In the emergency department she was found to be febrile to 100.8. Her UA here was positive again. She does continue to have left CVA tenderness. In addition the patient had blood cultures obtained in the emergency room, she was started on IV antibiotics including levofloxacin given a penicillin allergy. She also was given IV fluids at 30 cc/kilogram. Her serum lactate was 1.8. The patient was noted to have a mildly elevated creatinine of 1.4. She is admitted to the hospital at this time for acute pyelonephritis Discharge Providers Date of admission: 03/16/19 16:13 Discharge Date: 03/18/19 Discharge provider: Marcy Jackson DO Summary Discharge Diagnosis: 1. Acute sepsis, present on admission. Resolved. 2. Acute pyelonephritis, present on admission. Resolving. 3. Acute kidney injury, present on admission. Resolved. 4. Nonspecific facial dermatitis, chronic, etiology unclear, present on admission. Stable. Hospital Course: Natasha Gimenez is a 64-year-old female with minimal past medical history who presented for left flank pain and was admitted to the hospital with acute pyelonephritis. 1. Acute sepsis, present on admission. Resolved. -Sepsis criteria met including:Febrile (T 100.8F), leukocytosis (15.3), elevated creatinine 1.4 with source pyelonephritis. Lactic acid normal at 1.8. -Early goal directed therapy met including: broad spectrum antibiotics and IV fluids. 2. Acute pyelonephritis, present on admission. Resolving. -Patient presented febrile with left flank pain and rigors. -Initial WBC elevated at 15.3 and procalcitonin 0.40. Continue to trend both daily. -Blood cultures have no growth to date. Urine culture grew E.col resistant to Augmentin and Unasyn but sensitive to levofloxacin which patient has been on. -Continued levofloxacin 500 mg IV daily and discharged on levofloxacin 750 mg PO daily. -Ordered Tylenol as needed for fevers and Vicodin as needed for flank pain. 3. Acute kidney injury, present on admission. Resolved. -Unclear baseline creatinine but no known history of kidney disease. Initial creatinine 1.4. Creatinine now 1.0 and normalized, therefore, this was acute. -Continued IV fluids until adequately hydrated then discontinued. Unclear why potassium was added to IV fluids? -Avoided nephrotoxic agents. -Continued to monitor creatinine daily. 4. Nonspecific facial dermatitis, chronic, etiology unclear, present on admission. Stable. -Patient has a malar appearing rash of her face (second occurrence and followed by derm. Patient was on her last 2 days of prednisone, however, given her kidney infection prednisone was discontinued. Monitored rash closely and has been without change. Recommended autoimmune workup and rheumatology referral. Exam Vital Signs (past 8 hours): - 03/18/19 04:59 03/18/19 05:01 03/18/19 07:25 Temperature 101.2 F H 101.2 F H Pulse Rate 91 H Respiratory Rate 16 Blood Pressure 142/64 H Pulse Oximetry 97 93 Fraction of Inspired Oxygen 21 Oxygen Delivery Method Room Air Oxygen Flow Rate 0 Narrative Exam Narrative: General: Older female lying in bed and in no acute distress, well-developed, well-nourished, appropriately interactive. HEENT: Normocephalic, atraumatic. External ears without defect. Pupils equal, round, and reactive to light. Anicteric sclerae, moist conjunctivae, and no lid lag. Oropharynx free of erythema and cobble stoning with moist mucosa. Flushed appearing face with malar appearing rash. Mild hair loss on right eyebrow. Dry skin. Neck: Supple with full range of motion. No lymphadenopathy or thyromegaly. Cardiovascular: Regular rate and rhythm without murmurs, rubs, or gallops appreciated. Pulmonary: Clear to auscultation bilaterally without crackles, wheezes, or rhonchi. Normal respiratory effort with no use of accessory muscles. Abdomen: Soft, bowel sounds present, nontender, nondistended. Left flank tenderness, improved. No hepatosplenomegaly or masses appreciated. Extremities: No clubbing, cyanosis, or edema. Skin: Normal temperature, turgor, and texture; no ulcers, or subcutaneous nodules appreciated. Neurological: Cranial nerves grossly intact. Psychiatric: Normal mood and affect. Alert and oriented to person, place, and time. Objective Labs Result Diagrams: 03/18/19 09:35 03/18/19 09:35 Discharge Plan Discharge Plan Patient Disposition: Home Discharge comment: You are being discharged home. You have an E. coli kidney infection which is very common and you will be prescribed levofloxacin 750 mg for an additional 4 days to complete a total 7 day antibiotic course. Please follow-up with your PCP, Dr. Teresa, in the next 1 week regarding your hospitalization. You may continue to use Tylenol as needed for fever and were prescribed a temporary prescription for hydrocodone 5-325 mg every 8 hours use sparingly and as needed for flank pain. Additionally with kidney infections it is common to have fevers up to 2 weeks but they should be less severe, less frequent and eventually subside. Discharge Med Rec/Prescriptions Prescriptions: New acetaminophen 325 mg Tablet 650 mg PO Q6HR PRN (Reason: As Needed For Fever/Mild Pain) Qty: 30 RF: 0 hydrocodone-acetaminophen 5-325 mg Tablet 1 tab PO Q8H PRN (Reason: Pain, Moderate (4-6)) Qty: 10 RF: 0 levofloxacin 750 mg tablet 750 mg PO DAILY Qty: 4 RF: 0 Continued tacrolimus 0.1 % Ointment 1 applic TOPICAL DIRECTED RF: 0 Discontinued prednisone 10 mg Tablet 10 mg PO DAILY RF: 0 Follow up/Referrals: Saqib Teresa MD [Physician] - 1 Week Provider Discharge Instructions Diet: Diet as Tolerated Diet comment: Try to stay well hydrated and drink plenty of fluids Activity: Activity as tolerated Visit Report/Discharge Packet Instructions: Antibiotics (General) (Alternative Therapy), DI for Kidney Infect ion Discharge Data Attending Provider: Lorena Nam Admit Date/Time: 03/16/19 16:13 Quality VTE Deep Vein Thrombosis/Pulmonary Embolism Present on Admission: No
[2019-03-18] MEDS: levoFLOXacin 250 MG TABLET 750 MG PO (09:45)
[2019-03-18 09:59] LABS: Add Manual Diff / Slide Review NO; Basophils Absolute Auto 0 /uL (0-100); Basophils Percent Auto 0.4 % (0-2); Eosinophils Absolute Auto 200 /uL (0-450); Eosinophils Percent Auto 4.8 % (2-4); Hematocrit 36.3 % (36-46); Hemoglobin 11.8 g/dL (12.0-16.0); Lymphocytes Absolute Auto 800 /uL (1100-4500); Lymphocytes Percent Auto 15.2 % (25-40); Mean Corpuscular HGB Conc 32.6 % (30-36); Mean Corpuscular Hemoglobin 29.1 PG (26-34); Mean Corpuscular Volume 89.3 fL (80-100); Monocytes Absolute Auto 600 /uL (0-900); Monocytes Percent Auto 11.7 % (3-14); Neutrophils Absolute Auto 3500 /uL (1500-7000); Neutrophils Percent Auto 67.9 % (50-75); Platelet Count 189 X10^3/uL (150-400); Red Blood Cell Count 4.07 X10^6/uL (4.0-5.2); Red Cell Distribution Width 13.7 % (11.6-14.8); White Blood Cell Count 5.1 X10^3/uL (4.5-11.0)
[2019-03-18 10:09] LABS: Blood Urea Nitrogen 9 mg/dL (7-17); Calcium 9.1 mg/dL (8.4-10.2); Carbon Dioxide 29 mmol/L (22-32); Chloride 104 mmol/L (98-107); Estimated Glomerular Filt Rate 55.6 mL/min (>60); Glucose 127 mg/dL (80-110); HEMOLYSIS < 15 (0-50); Potassium 3.8 mmol/L (3.4-5.1); Sodium 139 mmol/L (137-145)
[2019-03-18 11:03] LABS: Procalcitonin 0.21 ng/mL (<0.5)
--- NOTE | 2019-03-18 13:41 | PC.NURSE ---
Addendum entered by Marjorie Palacios R.N. 03/18/19 14:06: Pt left unit via wheelchair in no distress at 1405 with [employer] [employer], her sister at her side and her is waiting at the ED entrance to drive pt home. pt had all belongings. Original Note: Day Shift- Pt afebrile this shift, minimal pain to left flank and headache, no prn's at this time. Pt voidign qs, drinking plenty of water, eating approx 25-50% of meals. Did have one episode of nausea where she stated I felt like I was going to vomit, no gagging or dry heaving noted. Pt had shower, Telemetry monitoring discontinued at 1030. Pt's prescription for PRN [place] was filled at [facility] pharmacy by her sister. Reviewed discharge summary packet with pt at 1325, all questions answered and no further voiced concerns. pt's is on his way to hospital to drive pt back home to [facility]. Pt states has all belongings with her.
== END 2019-03-18 14:05 | disposition home or self-care (01) ==
LOC: ED 16:06 → AC 03-17 07:04
PROVIDERS: Internal Medicine; Admitting Provider Internal Medicine; Emergency Provider Internal Medicine; Visit Provider Internal Medicine
DX: N10 Acute pyelonephritis (principal); L30.9 Dermatitis, unspecified
CPT/HCPCS: 36415; 36591; 80048; 80053; 81001; 83605; 83735; 84145; 85025; 85610; 85730; 87040; 87077; 87086; 87186; 94760; 94762; 96361; 96365; 96366; 96375; 96376; 99284; 99285; G0378; J1650; J1885; J1956; J2270; J2405